=== PATIENT | male | born 1990 | race Caucasian/White ===

== ENCOUNTER 2016-09-06 16:41 | Emergency (ER) | payer OTHER ==
[~2016-09-06 16:41] MED LIST: IBUP600T26 PO; KEFL500C7 PO; TRAM50TA2 PO
[2016-09-06] MEDS ORDERED: AMOXICILLIN 500 MG CAP As Ordered ONE (19:53)
--- NOTE | 2016-09-06 20:02 | EDDOCDS ---
Nurse's Notes [facility] Name: José Arteaga Age: 26 yrs Sex: Male : 1990 Arrival Date: 09/06/2016 Time: 16:41 Bed I8 Private MD: NVCarmine HYDE Diagnosis: Streptococcal pharyngitis Presentation: 09/06 16:47 Presenting complaint: Patient states: pt c/o sore throat and states "my throat is ead pretty swollen." denies hx of strep. Risk factors: Stridor is not present. Drooling is not present. Shortness of breath is not present. Cellulitis is not present. Adult Sepsis Screening: The patient does not have new or worsening altered mentation. Patient's respiratory rate is less than 22. Systolic blood pressure is greater than 100. Patient has a qSOFA score of 0- Negative Sepsis Screen. Suicide/Homicide risk assessment- the patient denies having any suicidal and/or homicidal ideations and does not present with any other emotional, behavioral or mental health complaints. 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 Transition of care: patient was not received from another setting of care. 16:47 Acuity: MANNY Level 4 ead 16:47 Method Of Arrival: Walkin/Carried/Asstd ead Triage Assessment: 16:48 General: Appears in no apparent distress, Behavior is appropriate for age, cooperative. ead Pain: Location: throat Pain currently is 4 out of 10 on a pain scale. HIV screening NA for this visit Offered previously. EENT: Reports pain when swallowing Denies nasal congestion. Respiratory: Airway is patent Respiratory effort is even, unlabored. Derm: Skin is pink, warm & dry. Historical: - Allergies: no known allergies; - Home Meds: 1. none - PMHx: none; - PSHx: right hand; - Social history: Smoking status: Chewing Tobacco No barriers to communication noted, The patient speaks fluent Latvian, Speaks appropriately for age. - Family history: Not pertinent. - : The pt / caregiver states he / she is not on anticoagulants. Home medication list is obtained from the patient. - Exposure Risk Screening:: None identified. Screenin:59 Screening information is obtained from the patient. Fall risk: No risks identified. At cp1 risk due to. Assistance ADL's: requires no assistance with activities of daily living. Abuse/DV Screen: The patient / caregiver reports he/she is: not in a situation that causes fear, pain or injury. Nutritional screening: No deficits noted. Advance Directives: Unable to assess Advance Directive status due to pt condition. home support is adequate. Assessment: 20:01 EENT: Throat performed by QMP. cp1 Vital Signs: 16:43 BP 135 / 79; Pulse 100; Resp 18 S; Temp 98.5(O); Pulse Ox 99% on R/A; Weight 83.91 kg gr2 (R); Height 6 ft. 0 in. (182.88 cm) (R); Pain 3/10; 17:50 BP 128 / 74; Pulse 91; Resp 22; Temp 99.3(T); Pulse Ox 99% on R/A; Pain 4/10; ar3 19:56 BP 125 / 85; Pulse 95; Resp 16; Temp 99.1(O); Pulse Ox 99% on R/A; Pain 4/10; sew 16:43 Body Mass Index 25.09 (83.91 kg, 182.88 cm) gr2 Vitals: 16:43 Log In Time: September 06, 2016 at 16:43. gr2 18:00 Strep Screen is obtained and tested: Positive. ar3 ED Course: 16:42 Patient visited by Onesimo Russo. gr2 16:42 Patient moved to Waiting gr2 16:43 [facility] is Private Physician. gr2 16:44 Patient visited by Onesimo Russo. gr2 16:44 Patient moved to Pre RCE gr2 16:48 Triage Initiated ead 17:52 Patient visited by Gaye Schneider PCA. ar3 18:00 Patient visited by Gaye Schneider PCA. ar3 19:18 Patient moved to I8 / 16 ms18 19:34 Patient visited by Ander Smith PCA. kb5 19:41 Kwesi Rai DO is Attending Physician. mm11 19:41 Patient visited by Kwesi Rai DO. mm11 19:49 Patient visited by Kwesi Rai DO. mm11 19:49 [facility] is Referral Physician. mm11 19:57 Patient visited by Dulce Zavala. sew 19:59 The patient / caregiver is instructed regarding the plan of care and ED course. cp1 19:59 No IV's were initiated during this patient's visit. No procedures done that require cp1 assistance. Administered Medications: 19:59 Drug: Amoxicillin 500 mg [amoxicillin 500 mg capsule (1 caps)] Route: PO; cp1 20:02 Follow up: Response: Pt left department before re-evaluation is appropriate cp1 Order Results: There are currently no results for this order. Outcome: 19:50 Discharge ordered by Provider. mm11 20:00 Discharge Assessment: Patient awake, alert and oriented x 3. No cognitive and/or cp1 functional deficits noted. Patient verbalized understanding of disposition instructions. patient administered narcotics - no. The following High Risk Discharge criteria are identified: None. Discharged to home ambulatory. Condition: good Condition: stable. Discharge instructions given to patient, Instructed on discharge instructions, follow up and referral plans. medication usage, saltwater rinses Demonstrated understanding of instructions, medications, Pt was receptive of discharge instructions/ teaching. Prescriptions given X 1. No special radiology studies were completed. Property sent home with patient. :Personal belongings accompany Pt. 20:02 Patient left the ED. cp1 Signatures: Ander Smith, FLANGER FLANGER kb5 Kwesi Rai, DO mm11 Gaye Schneider, FLANGER FLANGER ar3 Bianka Huerta,AUTO BODY STRAIGHTENER AUTO BODY STRAIGHTENER cp1 Dulce Zavala Gainslee gr2 Danyelle Velasquez RN RN Feliica Chapman RN RN ms18 MTDD
--- NOTE | 2016-09-06 20:02 | EDDOCDS ---
Physician Documentation [facility] Name: José Arteaga Age: 26 yrs Sex: Male : 1990 Arrival Date: 09/06/2016 Time: 16:41 Bed I8 [facility] [place] Disposition: 09/06/16 19:50 Discharged to Home/Self Care. Impression: Streptococcal pharyngitis. - Condition is Stable. - Discharge Instructions: Salt Water Gargle, Strep Throat, Strep Throat, [id number]. - Prescriptions for Amoxicillin 500 mg Oral Capsule - take 1 capsule by ORAL route every 8 hours for 10 days; 30 tablet. - Work Release Form - 2 day, Medication Reconciliation, Local Pharmacy Hours form. - [facility] [place]; When: As needed; Reason: Continuance of care. - Problem is an acute exacerbation. - Symptoms have improved. Historical: - Allergies: no known allergies; - Home Meds: 1. none - PMHx: none; - PSHx: right hand; - Social history: Smoking status: Chewing Tobacco No barriers to communication noted, The patient speaks fluent Egyptian, Speaks appropriately for age. - Family history: Not pertinent. - : The pt / caregiver states he / she is not on anticoagulants. Home medication list is obtained from the patient. - Exposure Risk Screening:: None identified. Vital Signs: 09/06 16:43 BP 135 / 79; Pulse 100; Resp 18 S; Temp 98.5(O); Pulse Ox 99% on R/A; Weight 83.91 kg / gr2 184.99 lbs (R); Height 6 ft. 0 in. (182.88 cm) (R); Pain 3/10; 17:50 BP 128 / 74; Pulse 91; Resp 22; Temp 99.3(T); Pulse Ox 99% on R/A; Pain 4/10; ar3 19:56 BP 125 / 85; Pulse 95; Resp 16; Temp 99.1(O); Pulse Ox 99% on R/A; Pain 4/10; sew 16:43 Body Mass Index 25.09 (83.91 kg, 182.88 cm) gr2 MDM: 17:19 Strep Screen, Nursing ordered. jc4 19:49 Amoxicillin 500 mg PO once ordered. mm11 Administered Medications: 19:59 Drug: Amoxicillin 500 mg [amoxicillin 500 mg capsule (1 caps)] Route: PO; cp1 20:02 Follow up: Response: Pt left department before re-evaluation is appropriate cp1 Signatures: Kwesi Rai, DO mm11 Bianka Huerta LPN METALLURGICAL ENGINEER cp1 Collette Haney, RN RN jc4 Danyelle Velasquez RN RN ead MTDD
--- NOTE | 2016-09-08 21:03 | EDDOCDS ---
Physician Documentation [facility] Name: José Arteaga Age: 26 yrs Sex: Male : 1990 Arrival Date: 09/06/2016 Time: 16:41 Bed I8 Private MD: [facility] [place] Disposition: 09/06/16 19:50 Discharged to Home/Self Care. Impression: Streptococcal pharyngitis. - Condition is Stable. - Discharge Instructions: Salt Water Gargle, Strep Throat, Strep Throat, [id number]. - Prescriptions for Amoxicillin 500 mg Oral Capsule - take 1 capsule by ORAL route every 8 hours for 10 days; 30 tablet. - Work Release Form - 2 day, Medication Reconciliation, Local Pharmacy Hours form. - Follow up: [facility] [place]; When: As needed; Reason: Continuance of care. - Problem is an acute exacerbation. - Symptoms have improved. Historical: - Allergies: no known allergies; - Home Meds: 1. none - PMHx: none; - PSHx: right hand; - Social history: Smoking status: Chewing Tobacco No barriers to communication noted, The patient speaks fluent Solomon Islander, Speaks appropriately for age. - Family history: Not pertinent. - : The pt / caregiver states he / she is not on anticoagulants. Home medication list is obtained from the patient. - Exposure Risk Screening:: None identified. Vital Signs: 09/06 16:43 BP 135 / 79; Pulse 100; Resp 18 S; Temp 98.5(O); Pulse Ox 99% on R/A; Weight 83.91 kg / gr2 184.99 lbs (R); Height 6 ft. 0 in. (182.88 cm) (R); Pain 3/10; 17:50 BP 128 / 74; Pulse 91; Resp 22; Temp 99.3(T); Pulse Ox 99% on R/A; Pain 4/10; ar3 19:56 BP 125 / 85; Pulse 95; Resp 16; Temp 99.1(O); Pulse Ox 99% on R/A; Pain 4/10; sew 16:43 Body Mass Index 25.09 (83.91 kg, 182.88 cm) gr2 MDM: 17:19 Strep Screen, Nursing ordered. jc4 19:49 Amoxicillin 500 mg PO once ordered. mm11 20:12 [facility] Payment Agreement was scanned into [employer] and attached to record. gjb 20:13 Financial registration complete. gjb 09/07 09:48 T-Sheet-- Draft Copy was scanned into [employer] and attached to record. gb Administered Medications: 09/06 19:59 Drug: Amoxicillin 500 mg [amoxicillin 500 mg capsule (1 caps)] Route: PO; cp1 20:02 Follow up: Response: Pt left department before re-evaluation is appropriate cp1 Signatures: Carina Kaye, Reg Reg gb Kwesi Rai, DO mm11 Bianka Huerta,DUCK FARMER DUCK FARMER cp1 Collette Haney RN RN jcDanyelle Austin,RN RN Windy Lozada The chart was reviewed and I authenticate all verbal orders and agree with the evaluation and treatment provided.Attachments: 20:12 [facility] Payment Agreement b 09/07 09:48 T-Sheet-- Draft Copy gb Chart Complete MTDD
--- NOTE | 2016-09-08 21:03 | EDDOCDS ---
Nurse's Notes [facility] Name: José Arteaga Age: 26 yrs Sex: Male : 1990 Arrival Date: 09/06/2016 Time: 16:41 Bed I8 Private MD: NDCarmine HYDE Diagnosis: Streptococcal pharyngitis Presentation: 09/06 16:47 Presenting complaint: Patient states: pt c/o sore throat and states "my throat is ead pretty swollen." denies hx of strep. Risk factors: Stridor is not present. Drooling is not present. Shortness of breath is not present. Cellulitis is not present. Adult Sepsis Screening: The patient does not have new or worsening altered mentation. Patient's respiratory rate is less than 22. Systolic blood pressure is greater than 100. Patient has a qSOFA score of 0- Negative Sepsis Screen. Suicide/Homicide risk assessment- the patient denies having any suicidal and/or homicidal ideations and does not present with any other emotional, behavioral or mental health complaints. 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 Transition of care: patient was not received from another setting of care. 16:47 Acuity: MANNY Level 4 ead 16:47 Method Of Arrival: Walkin/Carried/Asstd ead Triage Assessment: 16:48 General: Appears in no apparent distress, Behavior is appropriate for age, cooperative. ead Pain: Location: throat Pain currently is 4 out of 10 on a pain scale. HIV screening NA for this visit Offered previously. EENT: Reports pain when swallowing Denies nasal congestion. Respiratory: Airway is patent Respiratory effort is even, unlabored. Derm: Skin is pink, warm & dry. Historical: - Allergies: no known allergies; - Home Meds: 1. none - PMHx: none; - PSHx: right hand; - Social history: Smoking status: Chewing Tobacco No barriers to communication noted, The patient speaks fluent Djiboutian, Speaks appropriately for age. - Family history: Not pertinent. - : The pt / caregiver states he / she is not on anticoagulants. Home medication list is obtained from the patient. - Exposure Risk Screening:: None identified. Screenin:59 Screening information is obtained from the patient. Fall risk: No risks identified. At cp1 risk due to. Assistance ADL's: requires no assistance with activities of daily living. Abuse/DV Screen: The patient / caregiver reports he/she is: not in a situation that causes fear, pain or injury. Nutritional screening: No deficits noted. Advance Directives: Unable to assess Advance Directive status due to pt condition. home support is adequate. Assessment: 20:01 EENT: Throat performed by QMP. cp1 Vital Signs: 16:43 BP 135 / 79; Pulse 100; Resp 18 S; Temp 98.5(O); Pulse Ox 99% on R/A; Weight 83.91 kg gr2 (R); Height 6 ft. 0 in. (182.88 cm) (R); Pain 3/10; 17:50 BP 128 / 74; Pulse 91; Resp 22; Temp 99.3(T); Pulse Ox 99% on R/A; Pain 4/10; ar3 19:56 BP 125 / 85; Pulse 95; Resp 16; Temp 99.1(O); Pulse Ox 99% on R/A; Pain 4/10; sew 16:43 Body Mass Index 25.09 (83.91 kg, 182.88 cm) gr2 Vitals: 16:43 Log In Time: September 06, 2016 at 16:43. gr2 18:00 Strep Screen is obtained and tested: Positive. ar3 ED Course: 16:42 Patient visited by Onesimo Russo. gr2 16:42 Patient moved to Waiting gr2 16:43 [facility] is Private Physician. gr2 16:44 Patient visited by Onesimo Russo. gr2 16:44 Patient moved to Pre RCE gr2 16:48 Triage Initiated ead 17:52 Patient visited by Gaye Schneider PCA. ar3 18:00 Patient visited by Gaye Schneider PCA. ar3 19:18 Patient moved to I8 / 16 ms18 19:34 Patient visited by Ander Smith PCA. kb5 19:41 Kwesi Rai DO is Attending Physician. mm11 19:41 Patient visited by Kwesi Rai DO. mm11 19:49 Patient visited by Kwesi Rai DO. mm11 19:49 [facility] is Referral Physician. mm11 19:57 Patient visited by Dulce Zavala. sew 19:59 The patient / caregiver is instructed regarding the plan of care and ED course. cp1 19:59 No IV's were initiated during this patient's visit. No procedures done that require cp1 assistance. 20:12 [facility] Payment Agreement was scanned into [employer] and attached to record. lolly 09/07 09:48 T-Sheet-- Draft Copy was scanned into [employer] and attached to record. gb Administered Medications: 09/06 19:59 Drug: Amoxicillin 500 mg [amoxicillin 500 mg capsule (1 caps)] Route: PO; cp1 20:02 Follow up: Response: Pt left department before re-evaluation is appropriate cp1 Order Results: There are currently no results for this order. Outcome: 19:50 Discharge ordered by Provider. mm11 20:00 Discharge Assessment: Patient awake, alert and oriented x 3. No cognitive and/or cp1 functional deficits noted. Patient verbalized understanding of disposition instructions. patient administered narcotics - no. The following High Risk Discharge criteria are identified: None. Discharged to home ambulatory. Condition: good Condition: stable. Discharge instructions given to patient, Instructed on discharge instructions, follow up and referral plans. medication usage, saltwater rinses Demonstrated understanding of instructions, medications, Pt was receptive of discharge instructions/ teaching. Prescriptions given X 1. No special radiology studies were completed. Property sent home with patient. :Personal belongings accompany Pt. 20:02 Patient left the ED. cp1 Signatures: Carina Kaye, Reg Reg gb Luis, nAder, MOLASSES FEED MIXER MOLASSES FEED MIXER kb5 Kwesi Rai DO DO mm11 Gaye Schneider, MOLASSES FEED MIXER MOLASSES FEED MIXER ar3 Bianka Huerta,TETRYL BOILING TUB OPERATOR TETRYL BOILING TUB OPERATOR cp1 Dulce Zavala Gainslee gr2 Danyelle Velasquez,RN RN Felicia Chapman RN RN ms18 Windy Gomez Chart Complete MTDD
--- NOTE | 2016-09-08 21:03 | EDDOCDS ---
Physician Documentation [facility] Name: José Arteaga Age: 26 yrs Sex: Male : 1990 Arrival Date: 09/06/2016 Time: 16:41 Bed I8 Private MD: [facility] [place] Disposition: 09/06/16 19:50 Discharged to Home/Self Care. Impression: Streptococcal pharyngitis. - Condition is Stable. - Discharge Instructions: Salt Water Gargle, Strep Throat, Strep Throat, [id number]. - Prescriptions for Amoxicillin 500 mg Oral Capsule - take 1 capsule by ORAL route every 8 hours for 10 days; 30 tablet. - Work Release Form - 2 day, Medication Reconciliation, Local Pharmacy Hours form. - Follow up: [facility] [place]; When: As needed; Reason: Continuance of care. - Problem is an acute exacerbation. - Symptoms have improved. Historical: - Allergies: no known allergies; - Home Meds: 1. none - PMHx: none; - PSHx: right hand; - Social history: Smoking status: Chewing Tobacco No barriers to communication noted, The patient speaks fluent Uruguayan, Speaks appropriately for age. - Family history: Not pertinent. - : The pt / caregiver states he / she is not on anticoagulants. Home medication list is obtained from the patient. - Exposure Risk Screening:: None identified. Vital Signs: 09/06 16:43 BP 135 / 79; Pulse 100; Resp 18 S; Temp 98.5(O); Pulse Ox 99% on R/A; Weight 83.91 kg / gr2 184.99 lbs (R); Height 6 ft. 0 in. (182.88 cm) (R); Pain 3/10; 17:50 BP 128 / 74; Pulse 91; Resp 22; Temp 99.3(T); Pulse Ox 99% on R/A; Pain 4/10; ar3 19:56 BP 125 / 85; Pulse 95; Resp 16; Temp 99.1(O); Pulse Ox 99% on R/A; Pain 4/10; sew 16:43 Body Mass Index 25.09 (83.91 kg, 182.88 cm) gr2 MDM: 17:19 Strep Screen, Nursing ordered. jc4 19:49 Amoxicillin 500 mg PO once ordered. mm11 20:12 [facility] Payment Agreement was scanned into [employer] and attached to record. gjb 20:13 Financial registration complete. gjb 09/07 09:48 T-Sheet-- Draft Copy was scanned into [employer] and attached to record. gb Administered Medications: 09/06 19:59 Drug: Amoxicillin 500 mg [amoxicillin 500 mg capsule (1 caps)] Route: PO; cp1 20:02 Follow up: Response: Pt left department before re-evaluation is appropriate cp1 Signatures: Carina Kaye, Reg Reg gb Kwesi Rai, DO mm11 Bianka Huerta,ACADEMIC ASSOCIATE ACADEMIC ASSOCIATE cp1 Collette Haney RN RN jcDanyelle Austin,RN RN Windy Lozada The chart was reviewed and I authenticate all verbal orders and agree with the evaluation and treatment provided.Attachments: 20:12 [facility] Payment Agreement b 09/07 09:48 T-Sheet-- Draft Copy gb Chart Complete MTDD
== END 2016-09-06 20:02 | disposition home or self-care (01) ==
LOC: M ED 16:41
DX: J02.0 Streptococcal pharyngitis (principal); F17.220 Nicotine dependence, chewing tobacco, uncomplicated